=== PATIENT | female | born 1990 | race African-American/Black ===

== ENCOUNTER 2020-05-29 08:43 | Emergency (ER) | payer OTHER, SELFPAY ==
[2020-05-29 08:47] VITALS: BP 136/88; PULSE 100; RESP 20; TEMP 36.5; O2SAT 100
--- NOTE | 2020-05-29 09:22 | ED.EAR ---
HPI - Ear Problem General Chief complaint: Ear Stated complaint: L ear ache Time Seen by Provider: 05/29/20 09:10 Source: patient Mode of arrival: ambulatory Limitations: no limitations History of Present Illness HPI Narrative: This is a 29 year old female that presents to the ER for left earache x 3 days. No associated symptoms. Reports history of recurrent ear infections. Denies fever, discharge, sore throat, congestion or cough. Related Data Allergies Allergy/AdvReac Type Severity Reaction Status Date / Time No Known Allergies Allergy Verified 05/29/20 08:54 Review of Systems Review of Systems: Narrative: CONSTITUTIONAL: Denies fever ENT: Reports otalgia. Denies rhinorrhea, congestion, sore throat RESPIRATORY: Denies cough All systems reviewed & are unremarkable except as noted in HPI and below PMFSH Past Medical History Medical History (Updated 05/29/20 @ 09:28 by Claudia Arroyo PA-C) No active medical problems Social History Social History (Updated 05/29/20 @ 09:25 by Claudia Arroyo PA-C) Smoking status: Never smoker Exam Narrative: Exam Narrative: GENERAL: Well-appearing, well-nourished, and in no acute distress. HEAD: Normocephalic, atraumatic. EYES: EOMI. ENT: Bilateral external auditory canals normal. Bilateral TMs pearly langford non-bulging. No mastoid tenderness NECK: Supple. No adenopathy or masses. CHEST: Airway patent HEART: Regular rate EXTREMITIES: Normal range of motion. No edema. SKIN: Warm, dry, no rash. NEURO: No focal deficits. Alert and oriented x3. PSYCH: Normal mood and affect Course Vital Signs Vital signs: Vital Signs Temperature 97.7 F 05/29/20 08:47 Pulse Rate 100 05/29/20 08:47 Respiratory Rate 20 05/29/20 08:47 Blood Pressure 136/88 05/29/20 08:47 Pulse Oximetry 100 05/29/20 08:47 Temperature 97.7 F 05/29/20 08:47 Pulse Rate 100 05/29/20 08:47 Respiratory Rate 20 05/29/20 08:47 Blood Pressure 136/88 05/29/20 08:47 Pulse Oximetry 100 05/29/20 08:47 Medical Decision Making MDM Narrative Medical decision making narrative: Patient presents to the emergency department for left earache x3 days. She is afebrile and nontoxic-appearing. Bilateral external auditory canals and TMs appear normal. Patient instructed to follow-up with her primary care doctor. Reports history of recurrent ear infections, will send an antibiotic for any worsening symptoms Vital Signs Vital Signs: Vital Signs Temperature 97.7 F 05/29/20 08:47 Pulse Rate 100 05/29/20 08:47 Respiratory Rate 20 05/29/20 08:47 Blood Pressure 136/88 05/29/20 08:47 Pulse Oximetry 100 05/29/20 08:47 Temperature 97.7 F 05/29/20 08:47 Pulse Rate 100 05/29/20 08:47 Respiratory Rate 20 05/29/20 08:47 Blood Pressure 136/88 05/29/20 08:47 Pulse Oximetry 100 05/29/20 08:47 Critical Care Time Critical Care Time Critical Care Time: No Discharge Plan Discharge Clinical Impression: Otalgia of left ear Patient Disposition: Home, Self-Care Condition: Stable Instructions: Antibiotic Form, Earache (ED) Additional Instructions: Return to the emergency department if you experience fever, redness and swelling of your ear, or any other symptoms that are concerning to you Tylenol or ibuprofen as needed for discomfort. For worsening symptoms you may start antibiotic Follow-up with your primary care doctor Prescriptions: New amoxicillin 500 mg capsule 500 mg PO Q8H 7 Days Qty: 21 RF: 0 Follow-up/Referrals: GEORGE GASTON [Other] - 3 Days
== END 2020-05-29 10:07 | disposition home or self-care (01) ==
PROVIDERS: Emergency Provider Emergency Medicine
DX: H92.02 Otalgia, left ear (principal)
CPT/HCPCS: 99283

== ENCOUNTER 2020-06-02 05:11 | Emergency (ER) | payer OTHER, SELFPAY ==
[2020-06-02 05:14] VITALS: BP 135/101; PULSE 90; RESP 16; TEMP 37.1; O2SAT 100
--- NOTE | 2020-06-02 06:24 | ED.GENADULT ---
HPI - General Adult General Chief complaint: Ear Stated complaint: ear ache Time Seen by Provider: 06/02/20 06:16 History of Present Illness HPI narrative: Patient 29-year-old female presents the emergency department chief complaint of left-sided ear pain. Patient states she was recently treated for an ear infection reports that she is finished the course of antibiotics and continues to have pain in that left ear. Patient states it feels as though there is pressure in the ear reports not improved by anything nor is it worsened by anything. Related Data Allergies Allergy/AdvReac Type Severity Reaction Status Date / Time No Known Allergies Allergy Verified 05/29/20 08:54 Review of Systems Review of Systems: Narrative: A 10 system review of systems was completed on the patient and is negative except for what is stated in the HPI. Nursing and ancillary documentation was reviewed. PMFSH Past Medical History Medical History No active medical problems Social History Social History Smoking status: Never smoker Exam Narrative: Exam Narrative: GENERAL: Well-appearing, well-nourished, and in no acute distress. HEAD: Normocephalic, atraumatic. EYES: PERRLA and EOMI. ENT: Nares clear, no rhinorrhea or epistaxis. Mucous membranes moist. Left ear there is erythema of the tympanic membrane NECK: Supple. CHEST: Clear to auscultation. No respiratory distress. HEART: Regular rate and rhythm. No murmur heard. Normal peripheral pulses. ABDOMEN: Soft, nontender, nondistended, normal active bowel sounds. EXTREMITIES: Normal range of motion. No edema. SKIN: Warm, dry, no rash. NEURO: No focal deficits. Alert and oriented x3. PSYCH: Normal mood and affect. Course Vital Signs Vital signs: Vital Signs Temperature 37.1 C 06/02/20 05:14 Pulse Rate 90 06/02/20 05:14 Respiratory Rate 16 06/02/20 05:14 Blood Pressure 135/101 H 06/02/20 05:14 Pulse Oximetry 100 06/02/20 05:14 Temperature 37.1 C 06/02/20 05:14 Pulse Rate 90 06/02/20 05:14 Respiratory Rate 16 06/02/20 05:14 Blood Pressure 135/101 H 06/02/20 05:14 Pulse Oximetry 100 06/02/20 05:14 Medical Decision Making Vital Signs Vital Signs: Vital Signs Temperature 37.1 C 06/02/20 05:14 Pulse Rate 90 06/02/20 05:14 Respiratory Rate 16 06/02/20 05:14 Blood Pressure 135/101 H 06/02/20 05:14 Pulse Oximetry 100 06/02/20 05:14 Temperature 37.1 C 06/02/20 05:14 Pulse Rate 90 06/02/20 05:14 Respiratory Rate 16 06/02/20 05:14 Blood Pressure 135/101 H 06/02/20 05:14 Pulse Oximetry 100 06/02/20 05:14 Discharge Plan Discharge Clinical Impression: Otitis media Qualifiers: Otitis media type: unspecified Laterality: left Qualified Code(s): H66.92 - Otitis media, unspecified, left ear Patient Disposition: Home, Self-Care Condition: Stable Instructions: Antibiotic Form, Ear Infection (ED) Prescriptions: New cefdinir 300 mg capsule 300 mg PO Q12H Qty: 14 RF: 0 No Action amoxicillin 500 mg capsule 500 mg PO Q8H 7 Days Qty: 21 RF: 0 Follow-up/Referrals: Romario GASTON [Other] Time of Disposition: 06:27
[2020-06-02] MEDS: CEFDINIR 300 MG CAPSULE PO (06:38)
== END 2020-06-02 06:41 | disposition home or self-care (01) ==
PROVIDERS: Emergency Provider Emergency Medicine
DX: H66.92 Otitis media, unspecified, left ear (principal)
CPT/HCPCS: 99283; A9270

== ENCOUNTER 2020-08-02 17:31 | Emergency (ER) | payer OTHER, SELFPAY ==
[2020-08-02 17:35] VITALS: BP 134/83; PULSE 109; RESP 16; TEMP 36.8; O2SAT 99
[2020-08-02 17:46] LABS: Basophils Percent Auto 0.4 % (0.2-1.2); Eosinophils Absolute Auto 0.1 K/mm3 (0-0.3); Eosinophils Percent Auto 1.1 % (0-4.4); Hematocrit 36.6 % (37.0-47.0); Immature Granulocyte Absolute 0.01 K/mm3 (0.00-0.031); Immature Granulocyte Percent A 0.2 % (0-0.5); Lymphocytes Absolute Auto 1.93 K/mm3 (0.9-3.2); Lymphocytes Percent Auto 35.7 % (18.3-44.2); Mean Corpuscular HGB Conc 30.1 g/dl (32-36); Mean Corpuscular Hemoglobin 24.7 pg (26-34); Mean Corpuscular Volume 82.1 fl (80-100); Mean Platelet Volume 11.1 fl (7.4-10.4); Monocytes Absolute Auto 0.3 K/mm3 (0.1-0.6); Monocytes Percent Auto 6.1 % (2.6-8.5); Neutrophils Absolute Auto 3.1 K/mm3 (1.3-6.7); Neutrophils Percent Auto 56.5 % (45.5-73.1); Platelet Count Result 331 k/mm3 (150-375); Red Blood Count 4.46 M/mm3 (4.2-5.4); Red Cell Distribution Width 14.8 % (11.5-14.5); White Blood Count 5.4 K/mm3 (4.5-10.0)
[2020-08-02 17:58] LABS: Alanine Aminotransferase 19 U/L (4-35); Albumin Level 4.3 g/dL (3.5-5.1); Alkaline Phosphatase 71 U/L (38-126); Anion Gap 10 mmol/L (8-16); Aspartate Amino Transferase 23 U/L (14-36); Bilirubin,Total 0.9 mg/dL (0.2-1.3); Blood Urea Nitrogen 6 mg/dL (7-17); Calcium 9.5 mg/dL (8.4-10.2); Carbon Dioxide 24 mmol/L (22-30); Chloride 106 mmol/L (98-107); Estimated CRCL calculation 87 ml/min; Estimated Glomerular Filt Rate > 60; Glucose 105 mg/dL (65-105); Lipase 91 U/L (23-300); Potassium 3.7 mmol/L (3.4-5.0); Sodium 140 mmol/L (137-145)
--- NOTE | 2020-08-02 18:47 | ED.NAVMDI ---
HPI - Nausea/Vomiting/Diarrhea General Chief complaint: Nausea/Vomiting/Diarrhea Stated complaint: vomiting Time Seen by Provider: 08/02/20 18:39 History of Present Illness HPI Narrative: Nausea, vomiting, diarrhea since this morning. Since that time she has developed epigastric pain with vomiting. SHe has not treid anything for her symptoms. No fever, chills, chest pain, SOB, dysuria, hematuria. Related Data Allergies Allergy/AdvReac Type Severity Reaction Status Date / Time No Known Allergies Allergy Verified 08/02/20 18:46 Review of Systems Review of Systems: All systems reviewed & are unremarkable except as noted in HPI and below Constitutional: Constitutional: Denies chills and Denies fever(s) Cardiovascular: Cardiovascular: Denies chest pain Respiratory: Respiratory: Denies dyspnea Gastrointestinal: Gastrointestinal: Reports as per HPI Genitourinary: Genitourinary: Reports as per HPI Musculoskeletal: Musculoskeletal: Denies back pain Neurologic: Reports system reviewed and no additional complaints, except as documented [facility] Past Medical History Medical History No active medical problems Social History Social History Smoking status: Never smoker Exam Const: General: healthy appearing, no acute distress and alert Orientation/consciousness: patient oriented x3 HENMT: Head: normal to inspection Neck: Neck: normal visual inspection Resp: Effort & Inspection: normal respiratory effort Auscultation: clear to auscultation bilaterally, no rales, no rhonchi and no wheezes Cardio: Jugular venous distension: no JVD Rate: regular rate Rhythm: regular rhythm Heart sounds: no murmurs GI: Inspection: non-distended GI Palp: Yes Soft to palpation, Yes Tenderness to palpation present (GI) (mild), No Guarding due to palpation present (GI) and No Rebound tenderness present Skin: General skin exam: normal color Neuro: General: patient oriented x3 and moves all extremities Speech: normal speech Extrem: General: no edema Psych: Appearance: well kempt Affect: normal affect Course Vital Signs Vital signs: Vital Signs Temperature 36.8 C 08/02/20 17:35 Pulse Rate 109 H 08/02/20 17:35 Respiratory Rate 16 08/02/20 17:35 Blood Pressure 134/83 08/02/20 17:35 Pulse Oximetry 99 08/02/20 17:35 Temperature 36.8 C 08/02/20 17:35 Pulse Rate 89 08/02/20 20:42 Respiratory Rate 17 08/02/20 20:42 Blood Pressure 121/85 08/02/20 20:42 Pulse Oximetry 100 08/02/20 20:42 MDM - Nausea/Vomiting/Diarrhea MDM Narrative Medical decision making narrative: Labs reassuring. Feeling better. Tolerating PO. Differential Diagnosis Differential diagnosis: Likely traveler's diarrhea, gastroenteritis and dehydration Medical Records Attestation: I reviewed the patient's medical records. Lab Data Attestation: I reviewed the patient's lab results. Result diagrams: 08/02/20 17:41 08/02/20 17:41 Labs: Lab Results 08/02/20 08/02/20 Range/Units 17:41 17:41 WBC 5.4 (4.5-10.0) K/mm3 RBC 4.46 (4.2-5.4) M/mm3 Hgb 11.0 L (12.0-15.0) g/dL Hct 36.6 L (37.0-47.0) % MCV 82.1 (80-100) fl MCH 24.7 L (26-34) pg MCHC 30.1 L (32-36) g/dl RDW 14.8 H (11.5-14.5) % Plt Count 331 (150-375) k/mm3 MPV 11.1 H (7.4-10.4) fl Immature Gran % (Auto) 0.2 (0-0.5) % Neut % (Auto) 56.5 (45.5-73.1) % Lymph % (Auto) 35.7 (18.3-44.2) % Campbell % (Auto) 6.1 (2.6-8.5) % Eos % (Auto) 1.1 (0-4.4) % Baso % (Auto) 0.4 (0.2-1.2) % Lymph # (Auto) 1.93 (0.9-3.2) K/mm3 Campbell # (Auto) 0.3 (0.1-0.6) K/mm3 Eos # (Auto) 0.1 (0-0.3) K/mm3 Baso # (Auto) 0.0 (0.0-0.1) K/mm3 Abs Immat Gran (auto) 0.01 (0.00-0.031) K/mm3 Absolute Neuts (auto) 3.1 (1.3-6.7) K/mm3 Absolute Nucleated RBC 0.0 (0.0-0.012) K/mm3 N
[2020-08-02 18:49] VITALS: BP 121/95; PULSE 94; RESP 15; O2SAT 100
[2020-08-02] MEDS: PANTOPRAZOLE SODIUM IV 40 MG VIAL IV PUSH (18:58)
[2020-08-02] MEDS: SODIUM CHLORIDE 0.9% IV 1,000 ML 999 ML IV CONT (18:58)
[2020-08-02] MEDS: ONDANSETRON INJ 4 MG/2 ML VIAL IV PUSH (18:58)
[2020-08-02 20:42] VITALS: BP 121/85; PULSE 89; RESP 17; O2SAT 100
== END 2020-08-02 20:42 | disposition home or self-care (01) ==
PROVIDERS: Emergency Provider Emergency Medicine; PCP Family Medicine
DX: K52.9 Noninfective gastroenteritis and colitis, unspecified (principal)
CPT/HCPCS: 36415; 80053; 83690; 85025; 96361; 96374; 96375; 99284; C9113; J2405; J7030

== ENCOUNTER 2020-10-13 10:51 | Emergency (ER) | payer OTHER, SELFPAY ==
[2020-10-13 11:04] VITALS: BP 129/86; PULSE 85; RESP 16; TEMP 35.7; O2SAT 100
--- NOTE | 2020-10-13 12:53 | ED.EAR ---
HPI - Ear Problem General Chief complaint: Ear <Frankie Shelton PA-C - Last Filed: 10/13/20 12:58> Stated complaint: Left ear pain <MARIANA Joseph Last Filed: 10/13/20 12:58> Time Seen by Provider: 10/13/20 11:22 <Frankie Shelton PA-C - Last Filed: 10/13/20 12:58> Source: patient <MARIANA Joseph Last Filed: 10/13/20 12:58> Mode of arrival: ambulatory <MARIANA Joseph Last Filed: 10/13/20 12:58> Limitations: no limitations <MARIANA Joseph Last Filed: 10/13/20 12:58> History of Present Illness HPI Narrative: Patient presents with chief complaint of 2 days of pain to the outer left ear canal. Patient denies any bleeding or drainage. Patient denies any changes in hearing function. Patient denies any trauma to the ear. Patient reports history of allergies. She denies any fever, chills, nausea, vomiting or any other symptoms. <MARIANA Joseph Last Filed: 10/13/20 12:58> Related Data Allergies/adverse reactions: Allergies Allergy/AdvReac Type Severity Reaction Status Date / Time No Known Allergies Allergy Verified 10/13/20 11:15 <MARIANA Joseph Last Filed: 10/13/20 12:58> Review of Systems Review of Systems: CONSTITUTIONAL: Denies fever, chills, or sweats. EYES: Denies visual changes, redness, or discharge. ENT: Reports otalgia denies rhinorrhea, congestion, sore throat CARDIOVASCULAR: Denies chest pain, palpitations, or edema. RESPIRATORY: Denies cough or dyspnea. GASTROINTESTINAL: Denies abdominal pain, nausea, vomiting, or diarrhea. GENITOURINARY: Denies dysuria or hematuria. SKIN: Denies rash or itching. MUSCULOSKELETAL: Denies back pain, joint pain, or myalgia. NEUROLOGIC: Denies headache, numbness, dizziness, or weakness. PSYCHIATRIC: Denies anxiety or depression. <MARIANA Joseph Last Filed: 10/13/20 12:58> [facility]LY [facility] Past Medical History Medical History: Medical History No active medical problems <Frankie Shelton PA-C - Last Filed: 10/13/20 12:58> Social History Social History: Social History Smoking status: Never smoker <Frankie Shelton PA-C - Last Filed: 10/13/20 12:58> Exam Narrative: GENERAL: Well-appearing, well-nourished, and in no acute distress. HEAD: Normocephalic, atraumatic. EYES: PERRLA and EOMI. ENT: Mucous membranes moist. Oropharynx without tonsillar hypertrophy exudate or other lesions. Tenderness with manipulation and touch of the left ear canal with mild swelling. No external signs of mastoiditis. No discharge, pus or bleeding noted. Bilateral TMs pearly langford nonbulging NECK: Supple. No adenopathy or masses. Range of motion intact CHEST: Clear to auscultation. No respiratory distress. No wheezes rales or rhonchi HEART: Regular rate and rhythm. No murmur heard. Normal peripheral pulses. SKIN: Warm, dry, no rash. NEURO: No focal deficits. Alert and oriented x3. PSYCH: Normal mood and affect. <MARIANA Joseph Last Filed: 10/13/20 12:58> Course Vital Signs Vital signs: Vital Signs Temperature 96.3 F L 10/13/20 11:04 Pulse Rate 85 10/13/20 11:04 Respiratory Rate 16 10/13/20 11:04 Blood Pressure 129/86 10/13/20 11:04 Pulse Oximetry 100 10/13/20 11:04 Temperature 96.3 F L 10/13/20 11:04 Pulse Rate 85 10/13/20 11:04 Respiratory Rate 16 10/13/20 11:04 Blood Pressure 129/86 10/13/20 11:04 Pulse Oximetry 100 10/13/20 11:04 <MARIANA Joseph Last Filed: 10/13/20 12:58> Vital Signs Temperature 96.3 F L 10/13/20 11:04 Pulse Rate 85 10/13/20 11:04 Respiratory Rate 16 10/13/20 11:04 Blood Pressure 129/86 10/13/20 11:04 Pulse Oximetry 100 10/13/20 11:04 Temperature 96.3 F L 10/13/20 11:04 Pulse Rate 85 10/13/20 11:04 Respiratory Rate 16 10/13/20 11:04 Blood Pressure 129/86
== END 2020-10-13 13:03 | disposition home or self-care (01) ==
PROVIDERS: Emergency Provider General Practice
DX: H60.502 Unspecified acute noninfective otitis externa, left ear (principal)
CPT/HCPCS: 99283

== ENCOUNTER → 2020-11-16 10:47 | Emergency (ER) | payer OTHER, SELFPAY | END | disposition left against medical advice (07) | DX: Z53.21 Procedure and treatment not carried out due to patient leaving prior to being seen by health care provider (principal) | CPT/HCPCS: 99199 ==

== ENCOUNTER 2020-11-16 18:47 | Emergency (ER) | payer OTHER, SELFPAY ==
[2020-11-16 19:16] VITALS: BP 161/96; PULSE 97; RESP 18; TEMP 36.7; O2SAT 100
--- NOTE | 2020-11-16 21:18 | ED.DENTAL ---
HPI - Dental/Oral General Chief complaint: Ear Stated complaint: R EAR PAIN Time Seen by Provider: 11/16/20 20:57 Source: patient Mode of arrival: ambulatory Limitations: no limitations History of Present Illness HPI Narrative: This is a 30-year-old female that presents the emergency department for dentalgia noted over the last couple of days. Reports the pain is radiating into her right jaw and right ear. Denies fevers, facial edema or erythema, difficulty swallowing, or trouble breathing. MD Complaint: tooth pain Location: Tooth # (30) Related Data Allergies Allergy/AdvReac Type Severity Reaction Status Date / Time No Known Allergies Allergy Verified 11/16/20 20:57 Review of Systems Review of Systems: CONSTITUTIONAL: Denies fever ENT: Reports dentalgia All systems reviewed & are unremarkable except as noted in HPI and below PMFSH Past Medical History Medical History No active medical problems Social History Social History Smoking status: Never smoker Exam Narrative: GENERAL: Well-appearing, well-nourished, and in no acute distress. HEAD: Normocephalic, atraumatic. EYES: EOMI. ENT: Nares clear, no rhinorrhea or epistaxis. Mucous membranes moist. Oropharynx without tonsillar hypertrophy exudate or other lesions. Bilateral TMs pearly langford non-bulging. Poor dentition. Tooth #30 tender palpation, no surrounding erythema or fluctuance to suggest abscess NECK: Supple. No adenopathy or masses. CHEST: Clear to auscultation. No respiratory distress. No wheezes rales or rhonchi HEART: Regular rate and rhythm. No murmur heard. Normal peripheral pulses. EXTREMITIES: Normal range of motion. No edema. SKIN: Warm, dry, no rash. NEURO: No focal deficits. Alert and oriented x3. PSYCH: Normal mood and affect Course Vital Signs Vital signs: Vital Signs Temperature 98.0 F 11/16/20 19:16 Pulse Rate 97 11/16/20 19:16 Respiratory Rate 18 11/16/20 19:16 Blood Pressure 161/96 H 11/16/20 19:16 Pulse Oximetry 100 11/16/20 19:16 Temperature 98.0 F 10/01/21 19:16 Pulse Rate 97 11/16/20 19:16 Respiratory Rate 18 11/16/20 19:16 Blood Pressure 161/96 H 11/16/20 19:16 Pulse Oximetry 100 11/16/20 19:16 MDM - Dental/Oral MDM Narrative Medical decision making narrative: Patient presents to the emergency department for dentalgia noted over the last couple of days. She is afebrile and nontoxic-appearing. Tooth #30 is tender palpation, no obvious abscess. Patient will be started on oral antibiotics. She is to follow-up with her dentist. She was given warnings to return to the ER Critical Care Time Critical Care Time Critical Care Time: No Discharge Plan Discharge Clinical Impression: Dental infection Patient Disposition: Home, Self-Care Condition: Stable Instructions: Antibiotic Form, Toothache (ED) Additional Instructions: Return to the Emergency Department if you experience fever >101, increasing swelling and redness of your tooth, or any other symptoms that are concerning to you Take antibiotic as prescribed. Tylenol or Ibuprofen as needed for pain. You can apply a dab of clove oil to a Qtip and apply to the tooth to help numb the area Follow up with your dentist Prescriptions: New amoxicillin-pot clavulanate 875-125 mg tablet 1 tablet PO Q12H 7 Days Qty: 14 RF: 0 Follow-up/Referrals: Radha Aguilar RT(R) [Primary Care Provider] -
[2020-11-16] MEDS: KETOROLAC (*BKC) 60 MG/2 ML VIAL IM (21:37)
[2020-11-16] MEDS: AMOXICILLIN/CLAVULANATE K 875-125 MG TAB 1 TABLET PO (21:37)
== END 2020-11-16 21:40 | disposition home or self-care (01) ==
PROVIDERS: Emergency Provider Emergency Medicine
DX: K04.7 Periapical abscess without sinus (principal)
CPT/HCPCS: 96372; 99283; A9270; J1885

== ENCOUNTER 2021-04-17 11:44 | Emergency (ER) | payer OTHER, SELFPAY ==
[2021-04-17] VITALS (28 sets, daily range): BP systolic 106–142; BP diastolic 68–100; PULSE 77–107; RESP 13–24; TEMP 36.6–37; O2SAT 99–100
--- NOTE | ~2021-04-17 | XR_ITS ---
XR chest 2V DATE: 04/17/2021 12:48 INDICATION: Chest pain TECHNIQUE: PA and lateral views COMPARISON: None FINDINGS: Normal heart size. No hilar or mediastinal enlargement. No pulmonary infiltrate or consolid ation, pleural effusion or pulmonary vascular congestion or pneumothorax. IMPRESSION: Negative Reviewed, dictated and finalized at location A. ACCOUNTANT IMPRESSION: Negative
--- NOTE | 2021-04-17 11:54 | ECG_ITS ---
Measurements Intervals [place] Rate: 107 P: 67 MI: 184 QRS: 7 QRSD: 101 T: 20 QT: 331 QTc: 443 Interpretive Statements SINUS TACHYCARDIA INDETERMINATE AXIS SIGNIFICANT BASELINE ARTIFACT LIMITS INTERPRETABILITY ABNORMAL ECG NO PREVIOUS ECG AVAILABLE FOR COMPARISON Electronically Signed On 04-17-2021 14:07:11 [employer]ITY COMPLIANCE ENGINEER by Arnaud Dupree M.D.
[2021-04-17] MEDS: KETOROLAC 30 MG/ML VIAL (*BKC) IV PUSH (13:16)
[2021-04-17 13:26] LABS: Basophils Percent Auto 0.7 % (0.2-1.2); Eosinophils Absolute Auto 0.1 K/mm3 (0-0.3); Eosinophils Percent Auto 1.5 % (0-4.4); Hematocrit 33.9 % (37.0-47.0); Hemoglobin 10.5 g/dL (12.0-15.0); Immature Granulocyte Absolute 0.01 K/mm3 (0.00-0.031); Immature Granulocyte Percent A 0.2 % (0-0.5); Lymphocytes Absolute Auto 1.34 K/mm3 (0.9-3.2); Lymphocytes Percent Auto 33.4 % (18.3-44.2); Mean Corpuscular Hemoglobin 25.2 pg (26-34); Mean Corpuscular Volume 81.5 fl (80-100); Monocytes Absolute Auto 0.2 K/mm3 (0.1-0.6); Monocytes Percent Auto 5.5 % (2.6-8.5); Neutrophils Absolute Auto 2.4 K/mm3 (1.3-6.7); Neutrophils Percent Auto 58.7 % (45.5-73.1); Platelet Count Result 233 k/mm3 (150-375); Red Blood Count 4.16 M/mm3 (4.2-5.4); Red Cell Distribution Width 14.3 % (11.5-14.5)
[2021-04-17 13:39] LABS: Alanine Aminotransferase 18 U/L (4-35); Albumin Level 4.4 g/dL (3.5-5.1); Alkaline Phosphatase 74 U/L (38-126); Anion Gap 5 mmol/L (8-16); Aspartate Amino Transferase 24 U/L (14-36); Bilirubin,Total 0.8 mg/dL (0.2-1.3); Blood Urea Nitrogen 9 mg/dL (7-17); Calcium 8.7 mg/dL (8.4-10.2); Carbon Dioxide 26 mmol/L (22-30); Chloride 106 mmol/L (98-107); Estimated CRCL calculation 92 ml/min; Estimated Glomerular Filt Rate > 60; Glucose 100 mg/dL (65-110); Potassium 3.6 mmol/L (3.4-5.0); Sodium 137 mmol/L (137-145)
[2021-04-17 13:40] LABS: Add Urine Microscopic? YES; Appearance Urine Clear (Clear); Bilirubin Urine Negative (Negative); Blood Urine Negative (Negative); Color Urine Yellow (Yellow); Glucose Urine UA Negative (Negative); Ketones Urine Negative (Negative); Leukocyte Esterase Ur 2+ LEU/UL (Negative); Mucus Urine Rare /lpf; Nitrate Urine Negative (Negative); Protein Urine Negative (Negative); RBC Urine 0-2 /hpf (0-2); Specific Grav Ur 1.018 (1.001-1.035); Squamous Epithelial Cell Urine Few /hpf (Few); Urobilinogen Urine Negative mg/dL (<2.0); WBC Urine 0-3 /hpf
[2021-04-17 13:41] LABS: Prothrombin Time 12.4 Seconds (11.1-14.7)
[2021-04-17 13:43] LABS: Partial Thromboplastin Time 30.9 SECONDS (22.3-36.8)
[2021-04-17 13:51] LABS: Troponin I < 0.012 ng/mL (0.000-0.034)
[2021-04-17 16:41] LABS: Troponin I < 0.012 ng/mL (0.000-0.034)
--- NOTE | 2021-04-17 17:03 | ED.CHESTPAIN ---
HPI - Chest Pain General Chief Complaint: Chest Pain Stated Complaint: left arm numbness Time Seen by Provider: 04/17/21 11:56 History of Present Illness HPI narrative: Patient is a 30-year-old female who presents ER with chest pain. Intermittent over the last 3 days. Will last for couple minutes. No relief with oral pain medication. No exertional component. Reports over the last day she has been having some pain in her left neck and will occasionally get numbness down her left arm. Worse with turning her head to the right. Patient denies any trauma. No history of heart disease. Reports that she is otherwise healthy. No runny nose or sore throat or cough. Very mild shortness of breath. Related Data Allergies Allergy/AdvReac Type Severity Reaction Status Date / Time No Known Allergies Allergy Verified 11/16/20 20:57 Review of Systems Review of Systems: All systems reviewed & are unremarkable except as noted in HPI and below Constitutional: Constitutional: Denies chills, Denies fever(s) and Denies weakness ENT: Denies nasal congestion and Denies sore throat Cardiovascular: Cardiovascular: Reports chest pain, Denies rapid heart rate and Reports radiating jaw, neck or arm pain Respiratory: Respiratory: Denies cough, Reports dyspnea and Denies wheezing Gastrointestinal: Gastrointestinal: Denies abdominal pain, Denies nausea and Denies vomiting Musculoskeletal: Musculoskeletal: Reports back pain and Reports muscle cramps Neurologic: Denies focal weakness and Denies numbness Comments: paresthesia PMFSH Past Medical History Medical History (Updated 04/17/21 @ 17:08 by David Cunningham MD) Healthy female adult No active medical problems Surgical History Surgical History (Updated 04/17/21 @ 17:06 by David Cunningham MD) No history of previous surgery Social History Social History Smoking status: Never smoker Exam Narrative: GENERAL: Well-appearing, well-nourished, and in no acute distress. HEAD: Normocephalic, atraumatic. ENT: Mucous membranes moist. NECK: Supple. Palpable spasm of trapezius musculature. Full range of motion the neck without meningismus. CHEST: Clear to auscultation. No respiratory distress. HEART: Regular rate and rhythm. Normal peripheral pulses. ABDOMEN: Soft, nontender, nondistended. EXTREMITIES: Normal range of motion. No edema. SKIN: Warm, dry, no rash. NEURO: Alert and oriented x3. Course Course Emergency Course: Patient informed results. Troponins negative x2. Toradol given for discomfort. Discharge home. Vital Signs Vital signs: Vital Signs Temperature 97.9 F 04/17/21 11:53 Pulse Rate 107 H 04/17/21 11:53 Respiratory Rate 24 H 04/17/21 11:53 Blood Pressure 142/91 H 04/17/21 11:53 Pulse Oximetry 99 04/17/21 11:53 Temperature 98.6 F 04/17/21 15:31 Pulse Rate 77 04/17/21 15:31 Respiratory Rate 17 04/17/21 15:31 Blood Pressure 106/76 04/17/21 15:31 Pulse Oximetry 100 04/17/21 15:31 MDM - Chest Pain Lab Data Result diagrams: 04/17/21 13:05 04/17/21 13:10 Labs: Lab Results 04/17/21 04/17/21 04/17/21 Range/Units 13:05 13:05 13:10 WBC 4.0 L (4.5-10.0) K/mm3 RBC 4.16 L (4.2-5.4) M/mm3 Hgb 10.5 L (12.0-15.0) g/dL Hct 33.9 L (37.0-47.0) % MCV 81.5 (80-100) fl MCH 25.2 L (26-34) pg MCHC 31.0 L (32-36) g/dl RDW 14.3 (11.5-14.5) % Plt Count 233 (150-375) k/mm3 MPV 12.0 H (7.4-10.4) fl Immature Gran % (Auto) 0.2 (0-0.5) % Neut % (Auto) 58.7 (45.5-73.1) % Lymph % (Auto) 33.4 (18.3-44.2) % Gray % (Auto) 5.5 (2.6-8.5) % Eos % (Auto) 1.5 (0-4.4) % Baso % (Auto) 0.7 (0.2-1.2) % Lymph # (Auto) 1.34 (0.9-3.2) K/mm3 Gray # (Auto) 0.2 (0.1-0.6) K/mm3 Eos # (Auto) 0.1 (0-0.3) K/mm3 Baso # (Auto) 0.0 (0.0-0.1) K/mm3 Abs Immat Gran (auto) 0.01
--- NOTE | 2021-04-17 17:30 | PC.NURSE ---
Patient discharged to home in stable condition. Discharge instructions given to pat and verbalizes understanding. Family accompanied patient.
== END 2021-04-17 17:32 | disposition home or self-care (01) ==
PROVIDERS: Emergency Provider Emergency Medicine
DX: R07.9 Chest pain, unspecified (principal); M54.12 Radiculopathy, cervical region; R00.0 Tachycardia, unspecified; R94.31 Abnormal electrocardiogram [ECG] [EKG]
CPT/HCPCS: 36415; 71046; 80053; 81001; 84484; 85025; 85610; 85730; 93005; 96374; 99284; J1885

== ENCOUNTER 2021-07-01 17:40 | Emergency (ER) | payer OTHER, SELFPAY ==
[2021-07-01 17:55] VITALS: BP 152/107; PULSE 100; RESP 18; TEMP 36.2; O2SAT 100
--- NOTE | 2021-07-01 20:17 | ED.GENADULT ---
HPI - General Adult General Chief complaint: Dental/Oral Stated complaint: TOOTHACHE Time Seen by Provider: 07/01/21 19:14 Source: patient Mode of arrival: ambulatory Limitations: no limitations History of Present Illness HPI narrative: 30-year-old female presenting to the emergency department for evaluation of right lower dental pain. Patient states she fractured her tooth approximately 2 weeks ago. Patient states at that time she did have some mild ache but over the past 2 days she did have worsening sharp dental pain. Patient has been using Tylenol, ibuprofen, Anbesol for pain control with out significant improvement. Patient does have follow-up with her dentist scheduled on the . Related Data Allergies Allergy/AdvReac Type Severity Reaction Status Date / Time No Known Allergies Allergy Verified 07/01/21 17:58 Review of Systems Review of Systems: CONSTITUTIONAL: Denies fever, chills, or sweats. EYES: Denies visual changes, redness, or discharge. ENT: Dental pain, see HPI CARDIOVASCULAR: Denies chest pain, palpitations, or edema. RESPIRATORY: Denies cough or dyspnea. GASTROINTESTINAL: Denies abdominal pain, nausea, vomiting, or diarrhea. GENITOURINARY: Denies dysuria or hematuria. SKIN: Denies rash or itching. MUSCULOSKELETAL: Denies back pain, joint pain, or myalgia. NEUROLOGIC: Denies headache, numbness, or weakness. All systems reviewed & are unremarkable except as noted in HPI and below PMFSH Past Medical History Medical History (Updated 07/02/21 @ 00:00 by Brian Valdez) Healthy female adult No active medical problems Surgical History Surgical History (Updated 04/17/21 @ 17:06 by David Cunningham MD) No history of previous surgery Social History Social History Smoking status: Never smoker Exam Narrative: APPEARANCE: Well appearing, no pain, no distress, well-nourished. HEAD: normocephalic, atraumatic. EYES: PERRLA/EOMI, conjunctivae clear. NOSE: Normal no drainage EARS:TMS clear with good light reflex. THROAT: Pharynx clear, no exudate. No abscess amenable to drainage. Patient does have a fractured tooth. NECK: Supple. No adenopathy, no masses. Course Course Emergency Course: Patient was started on antibiotics in the ED. She was encouraged to have close follow-up with her dentist. All questions concerns were addressed. Vital Signs Vital signs: Vital Signs Temperature 97.2 F L 07/01/21 17:55 Pulse Rate 100 07/01/21 17:55 Respiratory Rate 18 07/01/21 17:55 Blood Pressure 152/107 H 07/01/21 17:55 Pulse Oximetry 100 07/01/21 17:55 Temperature 97.2 F L 07/01/21 17:55 Pulse Rate 100 07/01/21 17:55 Respiratory Rate 18 07/01/21 17:55 Blood Pressure 152/107 H 07/01/21 17:55 Pulse Oximetry 100 07/01/21 17:55 Medical Decision Making Vital Signs Vital Signs: Vital Signs Temperature 97.2 F L 07/01/21 17:55 Pulse Rate 100 07/01/21 17:55 Respiratory Rate 18 07/01/21 17:55 Blood Pressure 152/107 H 07/01/21 17:55 Pulse Oximetry 100 07/01/21 17:55 Temperature 97.2 F L 07/01/21 17:55 Pulse Rate 100 07/01/21 17:55 Respiratory Rate 18 07/01/21 17:55 Blood Pressure 152/107 H 07/01/21 17:55 Pulse Oximetry 100 07/01/21 17:55 Discharge Plan Discharge Clinical Impression: Toothache Patient Disposition: Home, Self-Care Condition: Stable Instructions: Antibiotic Form, Toothache (ED) Additional Instructions: Antibiotic as directed until completed. Ibuprofen scheduled for pain control. Guy as needed for additional pain control. Continue to have close follow-up with your dentist. Prescriptions: New amoxicillin-pot clavulanate 875-125 mg tablet 1 tablet PO Q12H Qty: 14 RF: 0 hydrocodone-acetaminophen 5-325 mg tablet 1 tablet PO Q8H PRN (Reason: pain) Qty: 10 RF: 0 Follow-up/Referrals: Radha Aguilar RT(R) [Primary Care Provider] -
[2021-07-01] MEDS: AMOXICILLIN/CLAVULANATE K 875-125 MG TAB 1 TABLET PO (21:03)
[2021-07-01] MEDS: HYDROcodone/acetaminophen (*CRX) 5-325 MG TABLET 1 TAB PO (21:03)
== END 2021-07-01 21:04 | disposition home or self-care (01) ==
PROVIDERS: Emergency Provider Emergency Medicine
DX: K08.89 Other specified disorders of teeth and supporting structures (principal)
CPT/HCPCS: 99283; A9270

== ENCOUNTER 2021-10-08 23:09 | Emergency (ER) | payer OTHER, SELFPAY ==
--- NOTE | ~2021-10-08 | XR_ITS ---
EXAMINATION: XR chest 2V DATE: 10/08/2021 23:26 INDICATION: Chest pain. TECHNIQUE: Frontal and lateral views of the chest were obtained. COMPARISON: Chest 2 views 04/17/2021, CT abdomen and pelvis 05/04/2017 FINDINGS: The chest demonstrates clear lungs without pneumonia, pleural effusion, or pneumothorax. Th e heart size is normal. IMPRESSION: 1. No acute cardiopulmonary disease. Reviewed, dictated and finalized at location A.
--- NOTE | 2021-10-08 23:11 | ECG_ITS ---
Measurements Intervals [place] Rate: 99 P: 45 [place]: 176 QRS: 11 QRSD: 106 T: 22 QT: 351 QTc: 450 Interpretive Statements SINUS RHYTHM NORMAL ECG COMPARED TO ECG 04/17/2021 11:56:38 SINUS RHYTHM NOW PRESENT Electronically Signed On 10-09-2021 16:02:31 CDT by Maikel Ruiz M.D.
[2021-10-08 23:47] VITALS: BP 132/86; PULSE 91; RESP 16; TEMP 36.2; O2SAT 100
[2021-10-08 23:52] LABS: Basophils Percent Auto 0.4 % (0.2-1.2); Eosinophils Absolute Auto 0.1 K/mm3 (0-0.3); Eosinophils Percent Auto 2.1 % (0-4.4); Hemoglobin 9.8 g/dL (12.0-15.0); Lymphocytes Absolute Auto 1.77 K/mm3 (0.9-3.2); Lymphocytes Percent Auto 37.5 % (18.3-44.2); Mean Corpuscular HGB Conc 30.6 g/dl (32-36); Mean Corpuscular Hemoglobin 24.8 pg (26-34); Monocytes Absolute Auto 0.2 K/mm3 (0.1-0.6); Monocytes Percent Auto 5.1 % (2.6-8.5); Neutrophils Absolute Auto 2.6 K/mm3 (1.3-6.7); Neutrophils Percent Auto 54.9 % (45.5-73.1); Platelet Count Result 269 k/mm3 (150-375); Red Blood Count 3.95 M/mm3 (4.2-5.4); Red Cell Distribution Width 15.7 % (11.5-14.5); White Blood Count 4.7 K/mm3 (4.5-10.0)
[2021-10-09 00:04] LABS: Alanine Aminotransferase 24 U/L (6-35); Albumin Level 4.2 g/dL (3.5-5.1); Alkaline Phosphatase 66 U/L (38-126); Anion Gap 9 mmol/L (8-16); Aspartate Amino Transferase 30 U/L (14-36); Bilirubin,Total 0.7 mg/dL (0.2-1.3); Blood Urea Nitrogen 13 mg/dL (7-17); Calcium 8.7 mg/dL (8.4-10.2); Carbon Dioxide 28 mmol/L (22-30); Chloride 103 mmol/L (98-107); Estimated CRCL calculation 50 ml/min; Estimated Glomerular Filt Rate > 60; Glucose 113 mg/dL (65-110); Lipase 95 U/L (23-300); Potassium 3.1 mmol/L (3.4-5.0); Sodium 140 mmol/L (137-145)
[2021-10-09 00:11] LABS: INR 1.1; Prothrombin Time 13.5 Seconds (11.1-14.7)
[2021-10-09 00:12] LABS: Partial Thromboplastin Time 31.6 SECONDS (22.3-36.8)
[2021-10-09 00:15] LABS: Troponin I < 0.012 ng/mL (0.000-0.034)
[2021-10-09 02:19] VITALS: BP 119/78; PULSE 82; RESP 19; O2SAT 100
[2021-10-09 02:21] VITALS: BP 119/78; PULSE 82; RESP 15; O2SAT 100
[2021-10-09 02:22] VITALS: PULSE 84
[2021-10-09 02:32] VITALS: BP 110/81; PULSE 90; RESP 19
--- NOTE | 2021-10-09 02:49 | ED.CHESTPAIN ---
HPI - Chest Pain General Chief Complaint: Chest Pain Stated Complaint: chest pain Time Seen by Provider: 10/09/21 02:48 Source: patient Mode of arrival: ambulatory Limitations: no limitations History of Present Illness HPI narrative: The patient is a 31-year-old female presenting to the emergency department for evaluation of left-sided chest pain with radiation to the left arm that occurred while she was shopping at [employer] early yesterday evening. Patient reports pain was sharp in nature but is currently resolved at the time of my assessment. She had no associated nausea, vomiting, diaphoresis or shortness of breath. No pleuritic pain. Patient is not on any oral contraceptive, denies history of leg swelling or calf pain or history of coagulopathy. She denies cough, hemoptysis or shortness of breath. Patient states that this occurred once previously she had a negative work-up and ultimately was referred to her primary care physician. Her PCP thought there was a component of anxiety to her chest pain and that she was referred to psychiatry which she is supposed to see this week. Patient denies any rhinorrhea, congestion, sore throat. No known history of symptomatic COVID infection. Patient states that she currently feels well. Related Data Allergies Allergy/AdvReac Type Severity Reaction Status Date / Time No Known Allergies Allergy Verified 10/09/21 02:21 Review of Systems Review of Systems: CONSTITUTIONAL: Denies fever, chills, or sweats. EYES: Denies visual changes, redness, or discharge. ENT: Denies rhinorrhea, congestion, sore throat, or otalgia. CARDIOVASCULAR: Chest pain currently resolved, denies palpitations or edema RESPIRATORY: Denies cough or dyspnea. GASTROINTESTINAL: Denies abdominal pain, nausea, vomiting, or diarrhea. GENITOURINARY: Denies dysuria or hematuria. SKIN: Denies rash or itching. MUSCULOSKELETAL: Denies back pain, joint pain, or myalgia. NEUROLOGIC: Denies headache, numbness, or weakness. PSYCHIATRIC: Reports history of anxiety PMFSH Past Medical History Medical History Healthy female adult No active medical problems Surgical History Surgical History No history of previous surgery Social History Social History Smoking status: Never smoker Exam Narrative: GENERAL: Awake, alert, conversant HEAD: Normocephalic, atraumatic. EYES: PERRLA and EOMI. ENT: Nares clear, no rhinorrhea or epistaxis. Mucous membranes moist. NECK: Supple. CHEST: No respiratory distress, breathing even and non labored, no chest wall tenderness HEART: Regular rate, sinus rhythm ABDOMEN:Non distended, non tender EXTREMITIES: Normal range of motion. No edema. SKIN: Warm, dry, no rash. NEURO:No focal deficits. Alert and oriented x3 Course Vital Signs Vital signs: Vital Signs Temperature 36.2 C L 10/08/21 23:47 Pulse Rate 91 10/08/21 23:47 Respiratory Rate 16 10/08/21 23:47 Blood Pressure 132/86 10/08/21 23:47 Pulse Oximetry 100 10/08/21 23:47 Oxygen Delivery Room Air 10/08/21 23:47 Temperature 36.2 C L 10/08/21 23:47 Pulse Rate 80 10/09/21 03:02 Respiratory Rate 20 10/09/21 03:02 Blood Pressure 106/78 10/09/21 03:02 Pulse Oximetry 100 10/09/21 02:21 Oxygen Delivery Room Air 10/08/21 23:47 MDM - Chest Pain MDM Narrative Medical decision making narrative: Patient's EKG and labs are without significant high risk changes. Cardiac risk factors reviewed. Patient is felt low risk for ACS and reasonable for further risk stratification testing as an outpatient. Pain was not sudden or maximal or onset without tearing or ripping quality. No other signs or symptoms to suggest aortic dissection. A low risk well's criteria is noted, patient is PERC criteria negative, PE is felt to be unlikely and D-dimer is not indicat
[2021-10-09 03:00] LABS: Troponin I < 0.012 ng/mL (0.000-0.034)
[2021-10-09 03:02] VITALS: BP 106/78; PULSE 80; RESP 20
[2021-10-09 05:14] VITALS: BP 115/75; PULSE 80; RESP 18; O2SAT 98
[2021-10-09 05:50] LABS: Troponin I < 0.012 ng/mL (0.000-0.034)
== END 2021-10-09 05:25 | disposition home or self-care (01) ==
PROVIDERS: Emergency Provider Emergency Medicine
DX: R07.89 Other chest pain (principal); D64.9 Anemia, unspecified
CPT/HCPCS: 36415; 71046; 80053; 83690; 84484; 85025; 85610; 85730; 93005; 99284

== ENCOUNTER 2021-10-20 19:17 | Emergency (ER) | payer OTHER, SELFPAY ==
[2021-10-20 19:23] VITALS: BP 127/79; PULSE 90; RESP 18; TEMP 36.9; O2SAT 100
[2021-10-20] MEDS: SODIUM CHLORIDE 0.9% IV 1,000 ML 999 ML IV CONT (20:00)
[2021-10-20] MEDS: ONDANSETRON INJ 4 MG/2 ML VIAL IV PUSH (20:00)
[2021-10-20 20:09] LABS: Basophils Percent Auto 0.4 % (0.2-1.2); Eosinophils Percent Auto 0.4 % (0-4.4); Hematocrit 33.8 % (37.0-47.0); Hemoglobin 10.1 g/dL (12.0-15.0); Lymphocytes Percent Auto 35.2 % (18.3-44.2); Mean Corpuscular HGB Conc 29.9 g/dl (32-36); Mean Corpuscular Volume 80.5 fl (80-100); Mean Platelet Volume 11.2 fl (7.4-10.4); Monocytes Absolute Auto 0.2 K/mm3 (0.1-0.6); Monocytes Percent Auto 6.3 % (2.6-8.5); Neutrophils Absolute Auto 1.5 K/mm3 (1.3-6.7); Neutrophils Percent Auto 57.7 % (45.5-73.1); Platelet Count Result 235 k/mm3 (150-375); Red Cell Distribution Width 15.8 % (11.5-14.5); White Blood Count 2.6 K/mm3 (4.5-10.0)
[2021-10-20 20:20] LABS: Alanine Aminotransferase 89 U/L (6-35); Alkaline Phosphatase 71 U/L (38-126); Anion Gap 11 mmol/L (8-16); Aspartate Amino Transferase 160 U/L (14-36); Bilirubin,Total 0.6 mg/dL (0.2-1.3); Blood Urea Nitrogen 8 mg/dL (7-17); Calcium 8.3 mg/dL (8.4-10.2); Carbon Dioxide 31 mmol/L (22-30); Chloride 99 mmol/L (98-107); Estimated CRCL calculation 112 ml/min; Estimated Glomerular Filt Rate > 60; Glucose 105 mg/dL (65-110); Lipase 102 U/L (23-300); Potassium 3.5 mmol/L (3.4-5.0); Sodium 141 mmol/L (137-145)
[2021-10-20 20:27] LABS: Anisocytosis 1+ (NORMAL); Hypochromasia 1+ (NORMAL); Platelet Estimate Adequate (Adequate)
--- NOTE | 2021-10-20 20:47 | ED.GENADULT ---
HPI - General Adult General Chief complaint: Unspecified Stated complaint: very dehydrated , fatigue Time Seen by Provider: 10/20/21 19:36 History of Present Illness HPI narrative: Patient is a 31-year-old female who presents ER with concerns for dehydration. Reports she started having nausea and vomiting diarrhea over the last few hours. She has a daughter who has similar symptoms. No fevers or chills or sweats. No syncope. No alleviating factors at home. She took a home COVID test that was negative. Related Data Allergies Allergy/AdvReac Type Severity Reaction Status Date / Time No Known Allergies Allergy Verified 10/20/21 19:27 Review of Systems Review of Systems: All systems reviewed & are unremarkable except as noted in HPI and below Constitutional: Constitutional: Denies chills and Denies fever(s) Cardiovascular: Cardiovascular: Denies chest pain and Denies palpitations Respiratory: Respiratory: Denies cough, Denies dyspnea and Denies wheezing Gastrointestinal: Gastrointestinal: Denies abdominal pain, Reports diarrhea, Reports nausea and Reports vomiting Genitourinary: Genitourinary: Denies dysuria, Denies flank pain and Denies urinary urgency PMFSH Past Medical History Medical History Healthy female adult No active medical problems Surgical History Surgical History No history of previous surgery Social History Social History Smoking status: Never smoker Exam Narrative: GENERAL: Well-appearing, well-nourished, and in no acute distress. HEAD: Normocephalic, atraumatic. EYES: PERRL and EOMI. NECK: Supple. CHEST: Clear to auscultation. No respiratory distress. HEART: Regular rate and rhythm. Normal peripheral pulses. ABDOMEN: Soft, nontender, nondistended. EXTREMITIES: Normal range of motion. No edema. SKIN: Warm, dry, no rash. NEURO: Alert and oriented x3. PSYCH: Normal mood and affect. Course Course Emergency Course: Patient resting comfortably. Informed of results. Patient declines COVID PCR. Vital Signs Vital signs: Vital Signs Temperature 98.4 F 10/20/21 19:23 Pulse Rate 90 10/20/21 19:23 Respiratory Rate 18 09/04/22 19:23 Blood Pressure 127/79 10/20/21 19:23 Pulse Oximetry 100 10/20/21 19:23 Oxygen Delivery Room Air 10/20/21 19:23 Temperature 98.4 F 10/20/21 19:23 Pulse Rate 90 10/20/21 19:23 Respiratory Rate 18 10/20/21 19:23 Blood Pressure 127/79 10/20/21 19:23 Pulse Oximetry 100 10/20/21 19:23 Oxygen Delivery Room Air 10/20/21 19:23 Medical Decision Making Vital Signs Vital Signs: Vital Signs Temperature 98.4 F 10/20/21 19:23 Pulse Rate 90 10/20/21 19:23 Respiratory Rate 18 10/20/21 19:23 Blood Pressure 127/79 10/20/21 19:23 Pulse Oximetry 100 10/20/21 19:23 Oxygen Delivery Room Air 10/20/21 19:23 Temperature 98.4 F 10/20/21 19:23 Pulse Rate 90 10/20/21 19:23 Respiratory Rate 18 10/20/21 19:23 Blood Pressure 127/79 10/20/21 19:23 Pulse Oximetry 100 10/20/21 19:23 Oxygen Delivery Room Air 10/20/21 19:23 Lab Data Result diagrams: 10/20/21 20:05 10/20/21 20:05 Labs: Lab Results 10/20/21 10/20/21 Range/Units 20:05 20:05 WBC 2.6 L (4.5-10.0) K/mm3 RBC 4.20 (4.2-5.4) M/mm3 Hgb 10.1 L (12.0-15.0) g/dL Hct 33.8 L (37.0-47.0) % MCV 80.5 (80-100) fl MCH 24.0 L (26-34) pg MCHC 29.9 L (32-36) g/dl RDW 15.8 H (11.5-14.5) % Plt Count 235 (150-375) k/mm3 MPV 11.2 H (7.4-10.4) fl Immature Gran % (Auto) 0.0 (0-0.5) % Neut % (Auto) 57.7 (45.5-73.1) % Lymph % (Auto) 35.2 (18.3-44.2) % [place] % (Auto) 6.3 (2.6-8.5) % Eos % (Auto) 0.4 (0-4.4) % Baso % (Auto) 0.4 (0.2-1.2) % Lymph # (Auto) 0.90 (0.9-3.2) K/mm3 [place] #
--- NOTE | 2021-10-20 20:52 | PC.NURSE ---
2049-PATIENT DECLINES COVID SWAB. PATIENT STATES SHE HAS HAD TWO NEGATIVE COVID SWABS AT HOME AND DOES NOT WANT ANOTHER SWAB DONE. EXPLAINED TO PATIENT THIS WAS DIFFERENT THAN THE HOME TEST BUT PATIENT CONTINUES TO DECLINES. PROVIDER NOTIFIED.
[2021-10-20] MEDS: ACETAMINOPHEN 500 MG TABLET 1000 MG PO (21:42)
== END 2021-10-20 21:45 | disposition home or self-care (01) ==
PROVIDERS: Emergency Provider Emergency Medicine
DX: K52.9 Noninfective gastroenteritis and colitis, unspecified (principal)
CPT/HCPCS: 36415; 80053; 83690; 85025; 96361; 96374; 99284; A9270; J2405; J7030

== ENCOUNTER 2021-10-22 11:19 | Emergency (ER) | payer OTHER, SELFPAY ==
--- NOTE | ~2021-10-22 | US_ITS ---
EXAMINATION: US abdomen limited DATE: 10/22/2021 17:25 INDICATION: Nausea and vomiting. Abnormal liver function tests. TECHNIQUE: Multiple grayscale and Doppler ultrasound images of the abdomen were obtained. COMPARISON: CT abdomen and pelvis 10/22/21 FINDINGS: The pancreas is obscured by bowel gas. The liver is normal without focal lesion. There is n ormal flow in main portal vein. The gallbladder is normal in size and contains gallstones. Gallbladde r wall thickening is noted. There was no sonographic Mora sign. The common duct is normal and measu res 4 mm. IMPRESSION: 1. Cholelithiasis. Gallbladder wall thickening may be seen with chronic cholecystitis, chronic liver disease, or interstitial edema. Reviewed, dictated and finalized at location E. IMPRESSION: 1. Cholelithiasis. Gallbladder wall thickening may be seen with chronic cholecy stitis, chronic liver disease, or interstitial edema.
--- NOTE | ~2021-10-22 | CT_ITS ---
EXAMINATION: CT abdomen pelvis w con INDICATION: Diffuse abdominal pain TECHNIQUE: Computed tomographic images of the abdomen and pelvis were obtained after the administrati on of 100 cc of Omnipaque 350 intravenous contrast. The dose-length product (DLP) was 1419.15 mGy-cm. Automated exposure control and iterative reconstruction technique were employed. COMPARISON: 05/04/2017 FINDINGS: Minimal dependent atelectasis is present in the lung bases. The heart size is normal. The l iver, spleen, pancreas, gallbladder, and adrenal glands are normal. Cysts of the kidneys measure up t o 11 mm on the right. No pathologically enlarged abdominal or pelvic lymph nodes are identified. The appendix is normal. There is no free intraperitoneal gas or evidence of bowel obstruction. IMPRESSION: 1. No CT correlate for the patient's symptoms. Reviewed, dictated and finalized at location B.
[2021-10-22 11:35] VITALS: BP 124/85; PULSE 89; RESP 16; TEMP 36.6; O2SAT 100
[2021-10-22 12:14] LABS: Eosinophils Percent Auto 0.4 % (0-4.4); Hematocrit 35.9 % (37.0-47.0); Hemoglobin 10.7 g/dL (12.0-15.0); Lymphocytes Absolute Auto 0.89 K/mm3 (0.9-3.2); Lymphocytes Percent Auto 34.4 % (18.3-44.2); Mean Corpuscular HGB Conc 29.8 g/dl (32-36); Mean Corpuscular Volume 80.5 fl (80-100); Mean Platelet Volume 11.6 fl (7.4-10.4); Monocytes Absolute Auto 0.2 K/mm3 (0.1-0.6); Monocytes Percent Auto 6.6 % (2.6-8.5); Neutrophils Absolute Auto 1.5 K/mm3 (1.3-6.7); Neutrophils Percent Auto 58.6 % (45.5-73.1); Platelet Count Result 236 k/mm3 (150-375); Red Blood Count 4.46 M/mm3 (4.2-5.4); Red Cell Distribution Width 15.8 % (11.5-14.5); White Blood Count 2.6 K/mm3 (4.5-10.0)
[2021-10-22 12:24] LABS: Alanine Aminotransferase 107 U/L (6-35); Albumin Level 4.1 g/dL (3.5-5.1); Alkaline Phosphatase 79 U/L (38-126); Anion Gap 8 mmol/L (8-16); Aspartate Amino Transferase 77 U/L (14-36); Bilirubin,Total 0.6 mg/dL (0.2-1.3); Blood Urea Nitrogen 3 mg/dL (7-17); Carbon Dioxide 29 mmol/L (22-30); Chloride 104 mmol/L (98-107); Estimated CRCL calculation 113 ml/min; Estimated Glomerular Filt Rate > 60; Glucose 109 mg/dL (65-110); Lipase 72 U/L (23-300); Potassium 3.5 mmol/L (3.4-5.0); Sodium 141 mmol/L (137-145)
[2021-10-22 12:29] LABS: Platelet Estimate Adequate (Adequate)
[2021-10-22 12:30] LABS: Anisocytosis 1+ (NORMAL); Hypochromasia 1+ (NORMAL)
[2021-10-22 14:06] VITALS: BP 119/90; PULSE 79; RESP 16; O2SAT 99
--- NOTE | 2021-10-22 14:13 | ED.NAVMDI ---
HPI - Nausea/Vomiting/Diarrhea General Chief complaint: Nausea/Vomiting/Diarrhea <MARIANA Bay Last Filed: 10/22/21 20:13> Stated complaint: vomiting, seen two days ago for same thing <Claudia Figueroa PA-C - Last Filed: 10/22/21 20:13> Time Seen by Provider: 10/22/21 14:05 <Claudia Figueroa PA-C - Last Filed: 10/22/21 20:13> History of Present Illness HPI Narrative: 31-year-old female here for evaluation of nausea and vomiting over the past couple of days. Patient states that she had diffuse abdominal discomfort as well, her children had similar symptoms and she was told she had gastroenteritis after being seen in the ED 2 days ago. Patient states that her pain returned and now she is unable to keep anything down by mouth. Pain is most notable in the epigastric region. Also notes 2 episodes of loose nonbloody stools today. No fevers or chills, cough or chest pain, dysuria or urgency, back pain. <MARIANA Bay Last Filed: 10/22/21 20:13> Related Data Allergies/Adverse reactions: Allergies Allergy/AdvReac Type Severity Reaction Status Date / Time No Known Allergies Allergy Verified 10/22/21 14:07 <MARIANA Bay Last Filed: 10/22/21 20:13> Review of Systems Review of Systems: Gen: Denies fevers or chills Eyes: Denies eye pain or visual change ENT: Denies congestion Respiratory: Denies shortness of breath or cough CV: Denies chest pain or palpitations GI: Reports abdominal pain, nausea, vomiting. denies burning, urgency, frequency or hematuria Musculoskeletal: Denies back pain or muscle pain Neuro: Denies numbness, tingling, weakness or focal weakness Skin: Denies rash Except as documented, all other systems reviewed and negative <MARIANA Bya Last Filed: 10/22/21 20:13> PMFSH Past Medical History Medical History: Medical History Healthy female adult No active medical problems <Claudia Figueroa PA-C - Last Filed: 10/22/21 20:13> Surgical History Surgical History: Surgical History No history of previous surgery <Claudia Figueroa PA-C - Last Filed: 10/22/21 20:13> Social History Social History: Social History Smoking status: Never smoker <Claudia Figueroa PA-C - Last Filed: 10/22/21 20:13> Exam Narrative: APPEARANCE: Well appearing, no pain in distress, well-nourished. Head: Normocephalic and atraumatic. EYES: PERRLA/EOMI, conjunctivae clear NOSE: No nasal drainage EARS: External ear normal in appearance THROAT: Oropharynx is clear. Mucous membranes are moist. NECK: Supple. No adenopathy, no masses. RESPIRATORY: Airway patent, respirations nonlabored. Clear to auscultation bilaterally, no rales, rhonchi, wheezing. CARDIOVASCULAR: Regular rate and rhythm without murmurs, rubs, or gallops. ABDOMINAL: Normoactive bowel sounds. Soft, nontender, nondistended. No rebound tenderness or guarding. MUSCULOSKELETAL: Extremities are warm and well-perfused. Moves all extremities well. No edema. NEURO: Normal speech. No focal neurologic deficits. SKIN: Skin is warm and dry. No rashes. PSYCHIATRIC: Normal affect/mood. <Claudia Figueroa PA-C - Last Filed: 10/22/21 20:13> Course SECURITY SALES CONSULTANT/PA Physician Supervision For this patient encounter, I reviewed the SECURITY SALES CONSULTANT or PA documentation, treatment plan, and medical decision making <Arnaldo Moreno MD - Last Filed: 10/23/21 07:16> Vital Signs Vital signs: Vital Signs Temperature 97.8 F 10/22/21 11:35 Pulse Rate 89 10/22/21 11:35 Respiratory Rate 16 10/22/21 11:35 Blood Pressure 124/85 10/22/21 11:35 Pulse Oximetry 100 10/22/21 11:35 Oxygen Delivery Room Air 10/22/21 11:35 Temperature 97.8 F 10/22/21 11:35 Pulse Rate 7
[2021-10-22] MEDS: SODIUM CHLORIDE 0.9% IV 1,000 ML 999 ML IV CONT (14:18)
[2021-10-22] MEDS: ONDANSETRON INJ 4 MG/2 ML VIAL IV PUSH (14:18)
[2021-10-22 15:18] LABS: Appearance Urine Clear (Clear); Bilirubin Urine Negative (Negative); Color Urine Yellow (Yellow); Glucose Urine UA Negative (Negative); Ketones Urine Trace mg/dL (Negative); Leukocyte Esterase Ur Negative LEU/UL (Negative); Nitrate Urine Negative (Negative); Protein Urine Negative (Negative); Urobilinogen Urine 0.2 mg/dL (<2.0)
[2021-10-22 15:32] LABS: Add Urine Microscopic? YES; Blood Urine Trace-Intact (Negative)
[2021-10-22 15:33] LABS: RBC Urine 0-2 /hpf (0-2)
[2021-10-22 15:34] LABS: Squamous Epithelial Cell Urine Few /hpf (Few); WBC Urine 0-3 /hpf
[2021-10-22 15:35] LABS: Bacteria Urine 1+ /hpf; Mucus Urine Few /lpf
[2021-10-22] MEDS: diphenhydrAMINE HCl INJ 50 MG/ML VIAL 12.5 MG IV PUSH (16:24)
[2021-10-22] MEDS: METOCLOPRAMIDE HCL INJ 10 MG/2 ML VIAL IV PUSH (16:25)
== END 2021-10-22 20:10 | disposition left against medical advice (07) ==
PROVIDERS: Emergency Provider Emergency Medicine
DX: K80.20 Calculus of gallbladder without cholecystitis without obstruction (principal)
CPT/HCPCS: 36415; 74177; 76705; 80053; 81001; 81025; 83690; 85025; 96361; 96374; 96375; 99284; J1200; J2405; J2765; J7030; Q9967

== ENCOUNTER 2022-02-22 11:27 | Emergency (ER) | payer OTHER, SELFPAY ==
--- NOTE | ~2022-02-22 | CT_ITS ---
EXAMINATION: CT abdomen pelvis w con DATE: 02/22/2022 15:00 INDICATION: RUQ pain/tenderness TECHNIQUE: Computed tomography (CT) of the abdomen and pelvis was performed with 100 mL Omnipaque-350 intravenous contrast. Automated exposure control and iterative reconstruction technique were employe d. The dose-length product was 1394.54 mGy-cm. COMPARISON: 10/22/2021. FINDINGS: Lower thorax: Unremarkable Liver: Normal. Biliary/Gallbladder: Gallbladder is normal. No bile duct dilation. Pancreas: No mass or duct dilation. Spleen: Normal. Adrenals:No mass. Kidneys: Simple right upper pole cyst. Bilateral hypodensities, too small to characterize, but most l ikely represent cysts. Very subtle patchy enhancement in the right kidney. Minimal right periureteral stranding. No obstructing calcification. No suspicious mass. No hydronephrosis. GI tract: Distal esophageal wall edema as can be seen with esophagitis. No small or large bowel dilat ion. Normal appendix. Mesentery/Peritoneum: No ascites, mass, or free air. Retroperitoneum: No mass. Pelvis: Pelvic organs are within normal limits. Soft Tissues: Soft tissues and body wall unremarkable. Bones: No acute osseous finding. IMPRESSION: 1. Esophagitis. 2. Subtle patchy right renal enhancement with mild right periureteral inflammatory change, may repres ent ascending infection with pyelonephritis in the appropriate clinical context. 3. Otherwise, no acute abdominopelvic process detected. Reviewed, dictated and finalized at location K. METRY NURSE IMPRESSION: 1. Esophagitis. 2. Subtle patchy right renal enhancement with mild right periureteral inflammat ory change, may represent ascending infection with pyelonephritis in the approp riate clinical context. 3. Otherwise, no acute abdominopelvic process detected.
[2022-02-22 11:30] VITALS: BP 130/71; PULSE 73; RESP 17; TEMP 37; O2SAT 100
--- NOTE | 2022-02-22 12:29 | PC.NURSE ---
multiple attempts at IV and blood draw without success. another RN attempting
[2022-02-22 12:49] LABS: Add Urine Microscopic? NO; Appearance Urine Clear (Clear); Basophils Percent Auto 0.8 % (0.2-1.2); Bilirubin Urine Negative (Negative); Blood Urine Negative (Negative); Color Urine Yellow (Yellow); Eosinophils Absolute Auto 0.1 K/mm3 (0-0.3); Eosinophils Percent Auto 2.6 % (0-4.4); Glucose Urine UA Negative (Negative); Hemoglobin 10.1 g/dL (12.0-15.0); Immature Granulocyte Absolute 0.01 K/mm3 (0.00-0.031); Immature Granulocyte Percent A 0.3 % (0-0.5); Ketones Urine Negative (Negative); Leukocyte Esterase Ur Negative LEU/UL (Negative); Lymphocytes Absolute Auto 1.19 K/mm3 (0.9-3.2); Lymphocytes Percent Auto 31.5 % (18.3-44.2); Mean Corpuscular HGB Conc 29.7 g/dl (32-36); Mean Corpuscular Hemoglobin 23.9 pg (26-34); Mean Corpuscular Volume 80.6 fl (80-100); Mean Platelet Volume 10.8 fl (7.4-10.4); Monocytes Absolute Auto 0.2 K/mm3 (0.1-0.6); Neutrophils Absolute Auto 2.3 K/mm3 (1.3-6.7); Neutrophils Percent Auto 59.8 % (45.5-73.1); Nitrate Urine Negative (Negative); Platelet Count Result 271 k/mm3 (150-375); Protein Urine Negative (Negative); Red Blood Count 4.22 M/mm3 (4.2-5.4); Red Cell Distribution Width 15.1 % (11.5-14.5); Urobilinogen Urine 0.2 mg/dL (<2.0); White Blood Count 3.8 K/mm3 (4.5-10.0)
[2022-02-22 12:56] LABS: Anisocytosis 1+ (NORMAL); Hypochromasia 1+ (NORMAL); Platelet Estimate Adequate (Adequate)
[2022-02-22 12:57] LABS: Schistocytes None Seen (NORMAL)
[2022-02-22 13:02] LABS: Alanine Aminotransferase 21 U/L (6-35); Alkaline Phosphatase 68 U/L (38-126); Anion Gap 7 mmol/L (8-16); Aspartate Amino Transferase 23 U/L (14-36); Bilirubin,Total 0.7 mg/dL (0.2-1.3); Blood Urea Nitrogen 15 mg/dL (7-17); Calcium 8.4 mg/dL (8.4-10.2); Carbon Dioxide 27 mmol/L (22-30); Chloride 106 mmol/L (98-107); Estimated CRCL calculation 117 ml/min; Estimated Glomerular Filt Rate > 60; Glucose 97 mg/dL (65-110); Lipase 81 U/L (23-300); Potassium 3.8 mmol/L (3.4-5.0); Sodium 140 mmol/L (137-145)
--- NOTE | 2022-02-22 13:42 | ED.ABDPAIN ---
HPI - Abdominal Pain General Chief Complaint: Abdominal Pain Stated Complaint: abd pain Time Seen by Provider: 02/22/22 12:48 History of Present Illness HPI narrative: Patient is a 31-year-old female with a history of iron deficient anemia, cholelithiasis presenting with right upper quadrant pain. Patient states that starting approximately 2 days ago she developed right upper quadrant pain associated with nausea. States that she was diagnosed with gallbladder stone several months ago. States that at that time her pain resolved and she was able to go home. Unfortunately, this episode has not resolved. States she had several episodes of diarrhea yesterday. No vomiting but remains persistently nauseated. No fevers or chills, headache, chest pain, shortness of breath, lightheadedness, dysuria, hematuria, leg swelling, flank pain. Related Data Allergies Allergy/AdvReac Type Severity Reaction Status Date / Time No Known Allergies Allergy Verified 02/22/22 11:29 Review of Systems Review of Systems: All systems reviewed & are unremarkable except as noted in HPI and below PMFSH Past Medical History Medical History Healthy female adult No active medical problems Surgical History Surgical History No history of previous surgery Social History Social History Smoking status: Never smoker Exam Narrative: GENERAL: Well-appearing, well-nourished, and in no acute distress. HEAD: Normocephalic, atraumatic. EYES: PERRLA and EOMI. ENT: Nares clear, no rhinorrhea or epistaxis. Mucous membranes moist. NECK: Supple. CHEST: Clear to auscultation. No respiratory distress. HEART: Regular rate and rhythm. No murmur heard. Normal peripheral pulses. ABDOMEN: Soft, tender in right upper quadrant and epigastrium without rebound or guarding, normal active bowel sounds. EXTREMITIES: Normal range of motion. No edema. SKIN: Warm, dry, no rash. NEURO: No focal deficits. Alert and oriented x3. PSYCH: Normal mood and affect. Course Vital Signs Vital signs: Vital Signs Temperature 98.6 F 02/22/22 11:30 Pulse Rate 73 02/22/22 11:30 Respiratory Rate 17 02/22/22 11:30 Blood Pressure 130/71 02/22/22 11:30 Pulse Oximetry 100 02/22/22 11:30 Temperature 98.3 F 02/22/22 16:22 Pulse Rate 78 02/22/22 16:22 Respiratory Rate 16 02/22/22 16:22 Blood Pressure 126/74 02/22/22 16:22 Pulse Oximetry 99 02/22/22 16:22 MDM - Abdominal Pain MDM Narrative Medical decision making narrative: Patient is a 31-year-old female presenting with right upper quadrant pain and nausea. Exam remarkable for the above. Vitals within normal limits. Blood work is unremarkable. UA is unremarkable. CT abdomen pelvis shows esophagitis. Gallbladder appears normal. Will give GI cocktail and IV Pepcid. Will discharge patient on short course of Pepcid. Advised PCP follow-up. Appropriate return precautions given. Patient voiced understanding and is agreeable with plan. Discharged in stable condition. Differential Diagnosis Differential diagnosis: Likely abdominal pain, acute appendicitis, calculus of kidney, constipation, diverticulitis, gastroenteritis, pancreatitis and other (cholecystitis ) Lab Data 02/22/22 12:41 02/22/22 12:41 Labs: Lab Results 02/22/22 02/22/22 02/22/22 Range/Units 12:41 12:41 12:41 WBC 3.8 L (4.5-10.0) K/mm3 RBC 4.22 (4.2-5.4) M/mm3 Hgb 10.1 L (12.0-15.0) g/dL Hct 34.0 L (37.0-47.0) % MCV 80.6 (80-100) fl MCH 23.9 L (26-34) pg MCHC 29.7 L (32-36) g/dl RDW 15.1 H (11.5-14.5) % Plt Count 271 (150-375) k/mm3 MPV 10.8 H (7.4-10.4) fl Immature Gran % (Auto) 0.3 (0-0.5) % Neut % (Auto) 59.8 (45.5-73.1) % Lymph % (Auto) 31.5 (18.3-44.2) % [place] %
[2022-02-22] MEDS: ONDANSETRON INJ 4 MG/2 ML VIAL IV PUSH (14:23)
[2022-02-22] MEDS: MORPHINE SULFATE (*CRX) 4 MG/ML INJ IV PUSH (14:23)
[2022-02-22] MEDS: SODIUM CHLORIDE 0.9% IV 1,000 ML 999 ML IV CONT (14:23)
[2022-02-22] MEDS: FAMOTIDINE 20 MG/2 ML VIAL IV PUSH (15:55)
[2022-02-22] MEDS: BELLADONNA ALK/PHENOB ELIX 10 ML, MAG HYDROX/ALUMINUM HYD/SIMETH 30 ML, LIDOCAINE HCL 2... PO (15:55)
[2022-02-22 16:22] VITALS: BP 126/74; PULSE 78; RESP 16; TEMP 36.8; O2SAT 99
== END 2022-02-22 16:29 | disposition home or self-care (01) ==
PROVIDERS: General Practice; Emergency Provider Emergency Medicine
DX: K20.90 Esophagitis, unspecified without bleeding (principal); D50.9 Iron deficiency anemia, unspecified; R93.421 Abnormal radiologic findings on diagnostic imaging of right kidney
CPT/HCPCS: 36415; 74177; 80053; 81003; 81025; 83690; 85025; 96361; 96374; 96375; 99284; A9270; J2270; J2405; J7030; Q9967

== ENCOUNTER 2022-08-03 16:37 | Emergency (ER) | payer OTHER, SELFPAY ==
[2022-08-03 16:39] VITALS: BP 160/86; PULSE 105; RESP 16; TEMP 36.8; O2SAT 100
[2022-08-03 19:07] VITALS: BP 125/98; PULSE 96; RESP 16; O2SAT 100
--- NOTE | 2022-08-03 19:59 | ED.GENADULT ---
HPI - General Adult General Chief complaint: Ear Stated complaint: ear pain Time Seen by Provider: 08/03/22 19:17 History of Present Illness HPI narrative: 31-year-old female presented the emergency department for evaluation of left ear and left jaw pain. Patient does have a history of dental issues and states that she is scheduled to have multiple teeth pulled on August 21. Patient states that she initially thought this was ear pain but now realizes that it is associated with her teeth. Patient denies any change in hearing. Related Data Allergies Allergy/AdvReac Type Severity Reaction Status Date / Time No Known Allergies Allergy Verified 08/03/22 19:10 Review of Systems Review of Systems: All systems reviewed & are unremarkable except as noted in HPI and below PMFSH Past Medical History Medical History Healthy female adult No active medical problems Surgical History Surgical History No history of previous surgery Social History Social History Smoking status: Never smoker Exam Narrative: APPEARANCE: Well appearing, no pain, no distress, well-nourished. HEAD: normocephalic, atraumatic. EYES: PERRLA/EOMI, conjunctivae clear. NOSE: Normal no drainage EARS:TMS clear with good light reflex. THROAT: Pharynx clear, no exudate. Mouth: Multiple dental caries, no abscess amenable to drainage. NECK: Supple. No adenopathy, no masses. RESPIRATORY: Airway patent, respirations nonlabored. Clear to auscultation bilaterally, no rales, rhonchi, wheezing. CARDIOVASCULAR: Regular rate and rhythm without murmurs rubs or gallops. ABDOMINAL: Soft, nontender, nondistended, normal bowel sounds MUSCULOSKELETAL: Moves all extremities. Strength/ROM intact, No edema, No calf tenderness. NEURO: Alert. Cranial nerves II through XII intact. Good gait. Good coordination SKIN: Warm, dry. Normal Color Course Course Emergency Course: 31-year-old female present to the emergency department for evaluation of left ear and left dental pain. Patient no abnormality for the left TM. Patient does have multiple dental caries. Patient has no medication allergies. Patient was started on Augmentin in the ED. Patient does have follow-up with a dentist scheduled for August 21. Patient was updated on the treatment plan on reasons to return to the emergency department. All question concerns were addressed. Vital Signs Vital signs: Vital Signs Temperature 98.2 F 08/03/22 16:39 Pulse Rate 105 H 08/03/22 16:39 Respiratory Rate 16 08/03/22 16:39 Blood Pressure 160/86 H 08/03/22 16:39 Pulse Oximetry 100 08/03/22 16:39 Oxygen Delivery Room Air 08/03/22 16:39 Temperature 98.2 F 08/03/22 16:39 Pulse Rate 96 08/03/22 19:07 Respiratory Rate 16 08/03/22 19:07 Blood Pressure 125/98 H 08/03/22 19:07 Pulse Oximetry 100 08/03/22 19:07 Oxygen Delivery Room Air 08/03/22 19:07 Medical Decision Making Vital Signs Vital Signs: Vital Signs Temperature 98.2 F 08/03/22 16:39 Pulse Rate 105 H 08/03/22 16:39 Respiratory Rate 16 08/03/22 16:39 Blood Pressure 160/86 H 08/03/22 16:39 Pulse Oximetry 100 08/03/22 16:39 Oxygen Delivery Room Air 08/03/22 16:39 Temperature 98.2 F 08/03/22 16:39 Pulse Rate 96 08/03/22 19:07 Respiratory Rate 16 08/03/22 19:07 Blood Pressure 125/98 H 08/03/22 19:07 Pulse Oximetry 100 08/03/22 19:07 Oxygen Delivery Room Air 08/03/22 19:07 Discharge Plan Discharge Clinical Impression: Pain due to dental caries Patient Disposition: Home, Self-Care Condition: Stable Instructions: Antibiotic Form, Dental Abscess (ED), Earache (ED) Additional Instructions: Antibiotic as directed until completed. Tylenol and naproxen as directed. Continue to have close follow-up with your pr
[2022-08-03] MEDS: AMOXICILLIN/CLAVULANATE K 875-125 MG TAB 1 TABLET PO (20:12)
== END 2022-08-03 20:15 | disposition home or self-care (01) ==
PROVIDERS: Emergency Provider Emergency Medicine
DX: K02.9 Dental caries, unspecified (principal)
CPT/HCPCS: 99283; A9270

== ENCOUNTER 2023-07-05 15:53 | Emergency (ER) | payer OTHER, SELFPAY ==
--- NOTE | ~2023-07-05 | US_ITS ---
EXAMINATION: US abdomen limited DATE: 07/05/2023 17:59 INDICATION: pain TECHNIQUE: Multiple grayscale and Doppler ultrasound images of limited portions of the abdomen were o btained. COMPARISON: 10/22/2021; CT abdomen pelvis 02/22/2022. FINDINGS: The visualized portions of the pancreas are normal. The liver is normal with normal echogen icity and echotexture. No surface nodularity. Normal hepatopetal flow in the main portal vein. Multip le large gallstones. No wall thickening or pericholecystic fluid. The common bile duct measures 4 mm. There was no sonographic Mora sign. IMPRESSION: Cholelithiasis. Otherwise normal right upper quadrant ultrasound findings. Reviewed, dictated and finalized at location K.
[2023-07-05 16:06] VITALS: BP 138/86; PULSE 101; RESP 16; TEMP 36.6; O2SAT 100
[2023-07-05] MEDS: SODIUM CHLORIDE 0.9% IV 1,000 ML 999 ML IV CONT (17:37)
[2023-07-05] MEDS: KETOROLAC 30 MG/ML VIAL (*BKC) IV PUSH (17:37)
[2023-07-05] MEDS: ONDANSETRON INJ 4 MG/2 ML VIAL IV PUSH (17:37)
[2023-07-05 17:40] LABS: Basophils Percent Auto 0.8 % (0.2-1.2); Eosinophils Absolute Auto 0.1 K/mm3 (0-0.3); Eosinophils Percent Auto 1.9 % (0-4.4); Hematocrit 29.3 % (37.0-47.0); Hemoglobin 8.6 g/dL (12.0-15.0); Immature Granulocyte Absolute 0.01 K/mm3 (0.00-0.031); Immature Granulocyte Percent A 0.2 % (0-0.5); Lymphocytes Absolute Auto 1.29 K/mm3 (0.9-3.2); Lymphocytes Percent Auto 24.2 % (18.3-44.2); Mean Corpuscular HGB Conc 29.4 g/dl (32-36); Mean Corpuscular Hemoglobin 21.5 pg (26-34); Mean Corpuscular Volume 73.3 fl (80-100); Mean Platelet Volume 10.7 fl (7.4-10.4); Monocytes Absolute Auto 0.3 K/mm3 (0.1-0.6); Monocytes Percent Auto 5.1 % (2.6-8.5); Neutrophils Absolute Auto 3.6 K/mm3 (1.3-6.7); Neutrophils Percent Auto 67.8 % (45.5-73.1); Platelet Count Result 273 k/mm3 (150-375); Red Cell Distribution Width 17.1 % (11.5-14.5); White Blood Count 5.3 K/mm3 (4.5-10.0)
[2023-07-05 17:50] LABS: Lactic Acid Reflex 1.3 mmol/L (0.7-2.0)
[2023-07-05 17:54] LABS: Alanine Aminotransferase 15 U/L (6-35); Albumin Level 4.1 g/dL (3.5-5.1); Alkaline Phosphatase 63 U/L (38-126); Anion Gap 7 mmol/L (4-12); Aspartate Amino Transferase 21 U/L (14-36); Bilirubin,Total 0.7 mg/dL (0.2-1.3); Blood Urea Nitrogen 14 mg/dL (7-17); Calcium 8.9 mg/dL (8.4-10.2); Carbon Dioxide 26 mmol/L (22-30); Chloride 107 mmol/L (98-107); Estimated CRCL calculation 104 ml/min; Estimated Glomerular Filt Rate > 60; Glucose 111 mg/dL (65-110); Lipase 93 U/L (23-300); Potassium 3.5 mmol/L (3.4-5.0); Sodium 140 mmol/L (137-145)
[2023-07-05 18:03] LABS: Hypochromasia 1+; Platelet Estimate Adequate (Adequate)
[2023-07-05 18:04] LABS: Microcytosis 1+ (NORMAL); Ovalocytes 1+; Schistocytes None Seen
--- NOTE | 2023-07-05 18:38 | ED.GENADULT ---
HPI - General Adult General Chief complaint: Abdominal Pain Stated complaint: upper abd pain Time Seen by Provider: 07/05/23 16:43 History of Present Illness HPI narrative: Edith Denise is a 32 y/o female who presents today wt reports of having right upper abdominal pain that wraps around to her back/ worse with eating she states that pain started yesterday. She reports she has been told she has gallstones before and this feels similar Related Data Allergies Allergy/AdvReac Type Severity Reaction Status Date / Time No Known Allergies Allergy Verified 08/03/22 19:10 Review of Systems Review of Systems: All systems reviewed & are unremarkable except as noted in HPI and below PMFSH Past Medical History Medical History Healthy female adult No active medical problems Surgical History Surgical History No history of previous surgery Social History Social History Smoking status: Never smoker Exam Narrative: GENERAL: Well-appearing, well-nourished, and in no acute distress. HEAD: Normocephalic, atraumatic. EYES: PERRLA and EOMI. ENT: Nares clear, no rhinorrhea or epistaxis. Mucous membranes moist. Oropharynx without tonsillar hypertrophy exudate or other lesions. NECK: Supple. No adenopathy or masses. No carotid bruits or JVD CHEST: Clear to auscultation. No respiratory distress. No wheezes rales or rhonchi HEART: Regular rate and rhythm. No murmur heard. Normal peripheral pulses. ABDOMEN: Soft, nondistended, normal active bowel sounds pain to the right upper quadrant EXTREMITIES: Normal range of motion. No edema. SKIN: Warm, dry, no rash. NEURO: No focal deficits. Alert and oriented x3. PSYCH: Normal mood and affect. Course Vital Signs Vital signs: Vital Signs Temperature 36.6 C 07/05/23 16:06 Pulse Rate 101 H 07/05/23 16:06 Respiratory Rate 16 07/05/23 16:06 Blood Pressure 138/86 07/05/23 16:06 Pulse Oximetry 100 07/05/23 16:06 Oxygen Delivery Room Air 07/05/23 16:06 Temperature 36.7 C 07/05/23 19:35 Pulse Rate 77 07/05/23 19:35 Respiratory Rate 15 07/05/23 19:35 Blood Pressure 142/83 H 07/05/23 19:35 Pulse Oximetry 99 07/05/23 19:35 Oxygen Delivery Room Air 07/05/23 16:06 Medical Decision Making MDM Narrative Medical decision making narrative: 32 y/o presents with biliary colic that started yesterday/ no fever/chills worse with eating/ Denies changes with urine. Concern for : cholecystitis / cholelithiasis/ Gastritis Plan to check labs/ US for RUQ while treating her symptoms. CBC- hgb 8.6, hct 29.3, no leukocytosis - discussed this anemia with pt and she states she has a hx of anemia and will follow up with her PCP regarding this CMP- unremarkable Lipase - 93 UA - Unremakable urine preg - Negative US- Cholelithiasis. Otherwise normal right upper quadrant ultrasound findings. Patient re-evaluated and she states she feels much better her pain is gone/ no longer Nausea - tolerating PO Plan to to d/c home with clear liquid diet then bland Follow up with PCP in 1 week Follow up with General Surgery Strict return precautions provided. Patient agrees with plan denies needing anything further. Medical Records Medical records reviewed: Yes I reviewed the external patient's medical records. Vital Signs Vital Signs: Vital Signs Temperature 36.6 C 07/05/23 16:06 Pulse Rate 101 H 07/05/23 16:06 Respiratory Rate 16 07/05/23 16:06 Blood Pressure 138/86 07/05/23 16:06 Pulse Oximetry 100 07/05/23 16:06 Oxygen Delivery Room Air 07/05/23 16:06 Temperature 36.7 C 07/05/23 19:35 Pulse Rate 77 07/05/23 19:35 Respiratory Rate 15 07/05/23 19:35 Blood Pressure 142/83 H 07/05/23 19:35 Pulse Oximetry 99 07/05/23 19:35 Oxygen Delivery Room
[2023-07-05 18:56] LABS: Appearance Urine Cloudy (Clear); Bacteria Urine 1+ /hpf; Bilirubin Urine Negative (Negative); Blood Urine Negative (Negative); Color Urine Yellow (Yellow); Glucose Urine UA Negative (Negative); Ketones Urine Negative (Negative); Leukocyte Esterase Ur Negative LEU/UL (Negative); Nitrate Urine Negative (Negative); Non Pathogenic Casts 0-2; Protein Urine Negative (Negative); RBC Urine 0-2 /hpf (0-2); Specific Grav Ur 1.024 (1.001-1.035); Squamous Epithelial Cell Urine Occasional /hpf (Few); Urobilinogen Urine 0.2 mg/dL (<2.0); WBC Urine 0-5 /hpf (0-3)
[2023-07-05 19:02] LABS: Add Urine Microscopic? NO
[2023-07-05 19:35] VITALS: BP 142/83; PULSE 77; RESP 15; TEMP 36.7; O2SAT 99
== END 2023-07-05 19:36 | disposition home or self-care (01) ==
PROVIDERS: Emergency Provider Nurse Practitioner Family
DX: K80.20 Calculus of gallbladder without cholecystitis without obstruction (principal)
CPT/HCPCS: 36415; 76705; 80053; 81003; 81025; 83605; 83690; 85025; 96361; 96374; 96375; 99284; J1885; J2405; J7030